=== PATIENT | male | born 1980 | race African-American/Black ===

== ENCOUNTER 2025-03-30 08:22 | Emergency (ER) | payer SELFPAY ==
[~2025-03-30] VITALS: Ht 175.3 cm; Wt 79.0 kg
[2025-03-30 08:25] VITALS: BP 128/82; PULSE 80; RESP 18; TEMP 98.1; O2SAT 98
== END 2025-03-30 08:30 | disposition left against medical advice (07) ==
LOC: ER 08:22
DX: R25.2 Cramp and spasm (principal); Z53.21 Procedure and treatment not carried out due to patient leaving prior to being seen by health care provider
CPT/HCPCS: 99281